=== PATIENT | male | born 1980 | race Caucasian/White ===

== ENCOUNTER 2017-11-08 13:30 | Emergency (ER) | payer OTHER ==
[~2017-11-08] VITALS: Ht 180.3 cm; Wt 69.0 kg
[~2017-11-08 13:30] MED LIST: EFFEXOR XR150 MG PO; KEFLEX500 MG PO
[2017-11-08 14:54] LABS: HEMATOCRIT 46.7 % (38.0-50.0); HEMOGLOBIN 16.9 G/DL (12.5-16.6); MCH 32.1 PG (29.0-34.0); MCHC 36.2 G/DL (30.0-36.0); MCV 88.6 FL (86-99); PLATELET COUNT 153 K/uL (156-360); RBC DIS.WIDTH-CV 12.4 % (11.8-14.6); RBC DIS.WIDTH-SD 40.1 % (39-53); RED BLOOD COUNT 5.27 M/uL (4.00-5.50); WHITE BLOOD COUNT 4.7 K/uL (4.1-10.2)
[2017-11-08 14:59] LABS: CHLORIDE 104 mEq/L (99-109); POTASSIUM 3.5 mEq/L (3.7-5.4); SODIUM 143 mEq/L (136-147)
[2017-11-08] MEDS ORDERED: THIAMINE HCL100 MG PO (15:00)
[2017-11-08] MEDS ORDERED: LIBRIUM25 MG PO (15:00)
[2017-11-08 15:01] LABS: GLUCOSE 90 mg/dL (70-99)
[2017-11-08 15:04] LABS: SERUM ETHYL ALCOHOL 164 mg/dL
[2017-11-08 15:05] LABS: CREATININE 0.7 mg/dL (0.6-1.3); GFR ESTIMATE (CALCULATED) > 59 mL/min/ (58.99-99999)
[2017-11-08 15:06] LABS: UREA NITROGEN (BUN) 7 mg/dL (9-23)
[2017-11-08 15:22] VITALS: BP 127/86
== END 2017-11-08 15:23 | disposition home or self-care (01) ==
LOC: EME 13:30
PROVIDERS: Family Medicine
DX: F10.20 Alcohol dependence, uncomplicated (principal); B19.20 Unspecified viral hepatitis C without hepatic coma; F41.9 Anxiety disorder, unspecified; F32.9 Major depressive disorder, single episode, unspecified; F17.200 Nicotine dependence, unspecified, uncomplicated
CPT/HCPCS: 80048; 85027; 99281; 99284; G0480

== ENCOUNTER 2017-11-09 19:48 | Emergency (ER) | payer OTHER ==
[~2017-11-09] VITALS: Ht 180.3 cm; Wt 67.7 kg
[~2017-11-09 19:48] MED LIST changes: +LIBRIUM25 MG PO; +THIAMINE HCL100 MG PO
[2017-11-09 23:43] LABS: HEMATOCRIT 48.6 % (38.0-50.0); HEMOGLOBIN 17.8 G/DL (12.5-16.6); MCH 32.4 PG (29.0-34.0); MCHC 36.6 G/DL (30.0-36.0); MCV 88.4 FL (86-99); PLATELET COUNT 168 K/uL (156-360); RBC DIS.WIDTH-CV 12.4 % (11.8-14.6); RBC DIS.WIDTH-SD 40.1 % (39-53); WHITE BLOOD COUNT 5.5 K/uL (4.1-10.2)
[2017-11-10 00:05] LABS: CHLORIDE 103 mEq/L (99-109); POTASSIUM 3.3 mEq/L (3.7-5.4); SODIUM 144 mEq/L (136-147)
[2017-11-10 00:06] LABS: GLUCOSE 89 mg/dL (70-99)
[2017-11-10 00:10] LABS: CREATININE 0.7 mg/dL (0.6-1.3); GFR ESTIMATE (CALCULATED) > 59 mL/min/ (58.99-99999); SERUM ETHYL ALCOHOL 112 mg/dL
[2017-11-10 00:11] LABS: UREA NITROGEN (BUN) 8 mg/dL (9-23)
[2017-11-10 02:09] VITALS: BP 135/80
== END 2017-11-10 02:09 | disposition home or self-care (01) ==
LOC: EME 19:48
PROVIDERS: Emergency Medicine
DX: F10.20 Alcohol dependence, uncomplicated (principal); F33.9 Major depressive disorder, recurrent, unspecified; Z04.6 Encounter for general psychiatric examination, requested by authority; Y90.5 Blood alcohol level of 100-119 mg/100 ml; F41.9 Anxiety disorder, unspecified; B19.20 Unspecified viral hepatitis C without hepatic coma; F17.200 Nicotine dependence, unspecified, uncomplicated
CPT/HCPCS: 80048; 81003; 85027; 90837; 99281; 99285; G0480